=== PATIENT | male | born 1985 | race Caucasian/White ===

== ENCOUNTER 2022-02-01 20:16 | Emergency (ER) | payer OTHER ==
[~2022-02-01] VITALS: Ht 165.1 cm; Wt 117.9 kg
[2022-02-01 20:56] VITALS: BP 116/79
--- NOTE | 2022-02-01 21:03 | NUR ---
WORKERS COMP WALKED IN C/O HEAD AND NECK PAIN S/P SEVERAL 50 POUND BOXES FALLING ON HIS HEAD AT WORK APPROX 1600 TODAY. +INTERMITTENT ROBLES, DIZZINESS. DENIES N/V, BLURRED VISION. PT STATES HE TOOK 1600MG OF MOTRIN TODAY AT APPROX 1640. PMH HTN, HLD
[2022-02-02] MEDS ORDERED: IBUP-1878 PO (01:01)
[2022-02-02 01:10] VITALS: BP 112/82
--- NOTE | 2022-02-02 01:10 | NUR ---
Patient discharged with v/s stable. Written and verbal after care instructions given and explained for Head injury, Cervical Strain and Sprain Rehab. Patient alert, oriented and verbalized understanding of instructions. Ambulatory with steady gait. All questions addressed prior to discharge. ID band removed. Patient advised to follow up with PMD. Rx of Ibuprofen given. Patient educated on indication of medication including possible reaction and side effects. Opportunity to ask questions provided and answered.
== END 2022-02-02 01:10 | disposition home or self-care (01) ==
LOC: MED 20:16
DX: S09.90XA Unspecified injury of head, initial encounter (principal); M54.2 Cervicalgia; Z79.899 Other long term (current) drug therapy; W20.8XXA Other cause of strike by thrown, projected or falling object, initial encounter; Y93.89 Activity, other specified; Y92.89 Other specified places as the place of occurrence of the external cause; Y99.8 Other external cause status
CPT/HCPCS: 70450; 72040; 99284